=== PATIENT | male | born 1995 | race Caucasian/White ===

== ENCOUNTER 2017-02-26 03:40 | Emergency (ER) | payer BC ==
[2017-02-26 04:15] VITALS: TEMP 36.8; Ht 172.7 cm
[2017-02-26] MEDS ORDERED: METHYLPREDNISOLONE 125 MG VIAL IV STA (04:24)
[2017-02-26] MEDS ORDERED: DiphenhydrAMINE HCL 50 MG/ML VIAL IV STA (04:24)
[2017-02-26] MEDS ORDERED: CIPR1TAB11 PO (04:52)
[2017-02-26 05:02] LABS: ALT/SGPT 39 U/L (12-78); AST/SGOT 22 U/L (15-37); BLOOD UREA NITROGEN 13 mg/dl (7-18); BUN/CREATININE RATIO 12.2 (10-20); CALCIUM 9.6 mg/dl (8.5-10.1); CARBON DIOXIDE 29 mmol/L (21-32); CHLORIDE 108 mmol/L (98-107); GLUCOSE 116 mg/dl (70-99); POTASSIUM 3.8 mmol/L (3.5-5.1); SODIUM 142 mmol/L (136-145)
[2017-02-26 05:05] LABS: ALB/GLOB RATIO 1.2 (0.9-2); ALKALINE PHOSPHATASE 70 U/L (45-117)
[2017-02-26 06:28] LABS: BASO % 0.4 %; BASO ABS # 0.04 K/uL (0-0.2); COMPLETE YES; EOS % 1.8 %; HEMATOCRIT 46.7 % (42-52); IG% 0.2 %; LYMPH % 21.1 %; LYMPH ABS # 1.88 K/uL (1.2-3.4); MEAN CELL VOLUME 84.8 fL (80-100); MEAN CORPUSCULAR HEMOGLOBIN 30.3 pg (25-34); MEAN CORPUSCULAR HGB CONC 35.8 g/dl (32-36); MEAN PLATELET VOLUME 10.8 fL (7.4-10.4); MONO % 8.3 %; NEUT % 68.2 %; PLATELET COUNT 219 K/uL (130-400); RED BLOOD COUNT 5.51 M/uL (4.7-6.1); WHITE BLOOD COUNT 8.91 K/uL (4.8-10.8)
[2017-02-26 06:45] LABS: URINE APPEARANCE CLEAR (CLEAR); URINE BILIRUBIN NEG (NEG); URINE COLOR YELLOW; URINE NITRITE NEG (NEG); UROBILINOGEN NEG (NEG); ZZUR CULT IF INDIC CLEAN CATCH NO
[2017-02-26 06:50] LABS: MANUAL MICROSCOPIC REQUIRED? NO; REVIEW REQ? NO
[2017-02-26] MEDS ORDERED: PRED50TA PO (07:02)
[2017-02-26 07:03] VITALS: BP 127/79; PULSE 110; O2SAT 97
--- NOTE | 2017-02-26 07:54 | DIAGNOSTIC IMAGING REPORT ---
SCROTAL ULTRASOUND CLINICAL HISTORY: Bilateral testicular pain. COMPARISON STUDY: None. TECHNIQUE: Grayscale and color and duplex Doppler sonography of the scrotum was performed. FINDINGS: The right testis measures 4.1 x 2 x 2.6 cm and the left measures 4 x 2 x 2.6 cm. Color flow within each testis is symmetric. There is no testicular mass. There is no evidence for epididymitis. IMPRESSION: Normal scrotal ultrasound. No evidence of testicular torsion. Electronically signed by: Navdeep Adams M.D. 02/26/2017 7:53 AM Dictated Date/Time: 02/26/2017 7:52 AM
--- NOTE | 2017-02-27 00:13 | EMERGENCY ROOM VISIT NOTE ---
History First contact with patient: :17 Chief Complaint: OTHER COMPLAINT Stated Complaint: FACIAL NUMBNESS History of Present Illness The patient is a 21 year old male who presents to the Emergency Room with complaints of right-sided facial numbness, lip numbness, and rash on his chest that began about one hour ago. The patient states that he was diagnosed with a urinary tract infection after having testicular pain at an urgent care clinic this week. He took his first day of Cipro earlier today and had similar but minimal symptoms. He waited 12 hours to take his second dose, and now has a stronger return of the symptoms. The patient does have some abdominal cramping without diarrhea. He is not nauseated. No coughing. He rates his discomfort a 5/10. Review of Systems More than 10 systems were reviewed and otherwise negative with the exception of history of present illness. Past Medical/Surgical History No chronic medical disease Family History No pertinent family history Social History Smoking Status: Never Smoker Occupation Status: student Current/Historical Medications Scheduled Ciprofloxacin Tab (Cipro), Unknown Dose PO UD Prednisone (Prednisone), 50 MG PO DAILY Allergies Coded Allergies: Amoxicillin (Verified Allergy, Intermediate, HIVES, 02/26/17) Physical Exam Vital Signs Date Time Temp Pulse Resp B/P Pulse Ox O2 Delivery O2 Flow Rate FiO2 02/26/17 07:03 110 18 127/79 97 Room Air 02/26/17 06:15 106 19 136/78 97 Room Air 02/26/17 04:15 36.8 79 18 124/89 98 Room Air Pain Rating (0-10): 0 Physical Exam VITALS: Vitals are noted on the nurse's note and reviewed by myself. Vital signs stable. GENERAL: Well-developed, well-nourished, white male, who is in no acute distress and resting comfortably. Patient is cooperative with the examination. HEAD: Normocephalic atraumatic. EARS: External ear normal. External auditory canals clear, tympanic membranes pearly johnson without erythema or effusion bilaterally. EYES: Pupils equal round and reactive to light and accommodation. Conjunctivae without injection, sclerae without icterus. Extraocular movements intact. NOSE: Patent, turbinates without inflammation or discharge. MOUTH: Mucous membranes moist. Tonsils are not enlarged. Pharynx without erythema, blood, or exudate. Uvula midline. Airway patent. NECK: Supple without nuchal rigidity. No lymphadenopathy. No thyromegaly. Cervical spine is nontender. HEART: Regular rate and rhythm without murmurs gallops or rubs. LUNGS: Clear to auscultation bilaterally without wheezes, rales or rhonchi. No retractions or accessory muscle use. ABDOMEN: Positive normal bowel sounds x 4. Soft, nontender, without masses or organomegaly. No guarding or rebound tenderness. MUSCULOSKELETAL: No muscle atrophy, erythema, or edema noted. Full range of motion without joint tenderness in all extremities. Medical Decision & Procedures ER Provider Diagnostic Interpretation: SCROTAL ULTRASOUND CLINICAL HISTORY: Bilateral testicular pain. COMPARISON STUDY: None. TECHNIQUE: Grayscale and color and duplex Doppler sonography of the scrotum was performed. FINDINGS: The right testis measures 4.1 x 2 x 2.6 cm and the left measures 4 x 2 x 2.6 cm. Color flow within each testis is symmetric. There is no testicular mass. There is no evidence for epididymitis. IMPRESSION: Normal scrotal ultrasound. No evidence of testicular torsion. Laboratory Results 02/26/17 04:35 Red Blood Count 5.51, Mean Corpuscular Volume 84.8, Mean Corpuscular Hemoglobin 30.3, Mean Corpuscular Hemoglobin Concent 35.8, Mean Platelet Volume 10.8, Neutrophils (%) (Auto) 68.2, Lymphocytes (%) (Auto) 21.1, Monocytes (%) (Auto) 8.3, Eosinophils (%) (Auto) 1.8, Basophils (%) (Auto) 0.4, Neutrophils # (Auto) 6.07, Lymphocytes # (Auto) 1.88, Monocytes # (Auto) 0.74, Eosinophils # (Auto) 0.16, Basophils # (Auto) 0.04 02/26/17 04:35 Test 02/26/17 04:35 02/26/17 05:55 White Blood Count 8.91 K/uL (4.8-10.8) Red Blood Count 5.51 M/uL (4.7-6.1) Hemoglobin 16.7 g/dL (14.0-18.0) Hematocrit 46.7 % (42-52) Mean Corpuscular Volume 84.8 fL (80-100) Mean Corpuscular Hemoglobin 30.3 pg (25-34) Mean Corpuscular Hemoglobin Concent 35.8 g/dl (32-36) Platelet Count 219 K/uL (130-400) Mean Platelet Volume 10.8 fL (7.4-10.4) Neutrophils (%) (Auto) 68.2 % Lymphocytes (%) (Auto) 21.1 % Monocytes (%) (Auto) 8.3 % Eosinophils (%) (Auto) 1.8 % Basophils (%) (Auto) 0.4 % Neutrophils # (Auto) 6.07 K/uL (1.4-6.5) Lymphocytes # (Auto) 1.88 K/uL (1.2-3.4) Monocytes # (Auto) 0.74 K/uL (0.11-0.59) Eosinophils # (Auto) 0.16 K/uL (0-0.5) Basophils # (Auto) 0.04 K/uL (0-0.2) RDW Standard Deviation 37.0 fL (36.4-46.3) RDW Coefficient of Variation 12.1 % (11.5-14.5) Immature Granulocyte % (Auto) 0.2 % Immature Granulocyte # (Auto) 0.02 K/uL (0.00-0.02) Nucleated RBC Absolute Count (auto) 0.00 K/uL (0-0) Nucleated Red Blood Cells % 0.0 % Anion Gap 5.0 mmol/L (3-11) Estimated GFR () 111.4 Estimated GFR (Non- 96.1 BUN/Creatinine Ratio 12.2 (10-20) Calcium Level 9.6 mg/dl (8.5-10.1) Total Bilirubin 0.5 mg/dl (0.2-1) Aspartate Amino Transf (AST/SGOT) 22 U/L (15-37) Alanine Aminotransferase (ALT/SGPT) 39 U/L (12-78) Alkaline Phosphatase 70 U/L (45-117) Total Protein 7.9 gm/dl (6.4-8.2) Albumin 4.3 gm/dl (3.4-5.0) Globulin 3.6 gm/dl (2.5-4.0) Albumin/Globulin Ratio 1.2 (0.9-2) Urine Color YELLOW Urine Appearance CLEAR (CLEAR) Urine pH 6.0 (4.5-7.5) Urine Specific [place] 1.010 (1.000-1.030) Urine Protein NEG (NEG) Urine Glucose (UA) NEG (NEG) Urine Ketones NEG (NEG) Urine Occult Blood NEG (NEG) Urine Nitrite NEG (NEG) Urine Bilirubin NEG (NEG) Urine Urobilinogen NEG (NEG) Urine Leukocyte Esterase NEG (NEG) Medications Administered Medications (Trade) Dose Ordered Sig/Chad Route Start Time Stop Time Status Last Admin Dose Admin Methylprednisolone Sodium Succinate (Solu-Medrol IV) 125 mg NOW STAT IV 02/26/17 04:24 02/26/17 04:26 DC 02/26/17 04:39 125 MG Diphenhydramine HCl (Benadryl Inj) 25 mg NOW STAT IV 02/26/17 04:24 02/26/17 04:26 DC 02/26/17 04:39 25 MG ED Course Physical exam and history were performed. Nursing notes and EMR were reviewed. Patient appears to have symptoms of an allergic reaction after taking Cipro this evening. The patient does not appear in anaphylaxis. He is on the antibiotic after having testicular pain. He did have his urine testing results with him from urgent care, and he did have nitrates and esterase. He does have some mild continued testicle pain. IV access was established and labs were obtained. The patient was hydrated and medicated as above. Ultrasound was performed. The patient does not have a significantly elevated white blood cell count, gross anemia, bandemia, or significant electrolyte imbalance. His urine here in the department did not show significant findings. His ultrasound is as above and is essentially normal. The patient overall had significant improvement of his symptoms after sliding Medrol and Benadryl. He almost assuredly is allergic to Cipro and I requested that he discontinue the medication. The patient was being treated for UTI, but this is not evident on his exam today. He does not have evidence of epididymitis or other findings on ultrasound. The patient will be given a continuation prescription for steroids. He may continue Benadryl. I recommended that he follow with his primary care physician in next 1-2 days. He was otherwise invited back to the ER with any new, worsening, or concerning symptoms. The chart was completed utilizing [employer] Voice Recognition Software. Grammatical errors, random word insertions, pronoun errors, and incomplete sentences are an occasional consequence of this system due to software limitations, ambient noise, and hardware issues. Any formal questions or concerns about the content, text, or information contained within the body of this dictation should be directly addressed to the provider for clarification. . Medical Decision Differential diagnosis: Etiologies such as allergic reaction, anaphylaxis, urticaria, Monge-Donnell syndrome, toxic epidermal necrolysis, erythema multiforme, cellulitis, as well as others were entertained. Impression Primary Impression: Allergic reaction caused by a drug Departure Information Dispostion Home / Self-Care Condition GOOD Prescriptions Prednisone (Prednisone) 50 Mg Tab 50 MG PO DAILY for 4 Days, #4 TAB Prov: Herbert Myles PA-C 02/26/17 Forms HOME CARE DOCUMENTATION FORM, IMPORTANT VISIT INFORMATION Patient Instructions My [facility] Additional Instructions You were seen and evaluated today on an emergency basis only. This is not a substitute for, or an effort to provide, complete comprehensive medical care. It is not possible to recognize and treat all injuries or illnesses in a single emergency department visit. For this reason it is recommended that you followup with your primary care physician in the next 1-2 days for recheck of your condition. Take prednisone 50 mg daily for the next 4 days. You may use [id number] Benadryl 25-50 mg every 6 hours for additional relief of symptoms. Do not take Cipro or similar medications in the future. You are welcome to return to the emergency department anytime with new, worsening, or concerning symptoms.
== END 2017-02-26 07:08 | disposition home or self-care (01) ==
LOC: C.EDA 03:40
DX: R20.0 Anesthesia of skin (principal); R21 Rash and other nonspecific skin eruption; R10.9 Unspecified abdominal pain; T36.8X5A Adverse effect of other systemic antibiotics, initial encounter

== ENCOUNTER 2017-07-27 15:25 | Emergency (ER) | payer BC, OTHER ==
[~2017-07-27] VITALS: Ht 157.5 cm; Wt 69.9 kg
[~2017-07-27 15:25] MED LIST: CIPR1TAB11 PO
[2017-07-27 15:31] VITALS: BP 141/98; PULSE 92; TEMP 37.1; O2SAT 99; Ht 157.5 cm; Wt 69.9 kg
[2017-07-27] MEDS ORDERED: AZIT500T26 PO (16:06)
--- NOTE | 2017-07-27 16:19 | DIAGNOSTIC IMAGING REPORT ---
CHEST 2 VIEWS ROUTINE CLINICAL HISTORY: COUGH X 2 WEEKS COMPARISON STUDY: No previous studies for comparison. FINDINGS: The cardiac and mediastinal contours are normal. There is no evidence of focal pulmonary consolidation. There is no evidence of failure. No pleural effusions are visualized.[ IMPRESSION: No active disease in the chest. Electronically signed by: Galdino Montero M.D. 07/27/2017 4:18 PM Dictated Date/Time: 07/27/2017 4:18 PM
[2017-07-27] MEDS ORDERED: DOXY100C76 PO (17:08)
[2017-07-27] MEDS ORDERED: PRED50TA PO (17:08)
--- NOTE | 2017-07-27 17:10 | EMERGENCY ROOM VISIT NOTE ---
ED Visit Note First contact with patient: 15:40 CHIEF COMPLAINT: Possible allergic reaction to azithromycin HISTORY OF PRESENT ILLNESS: Patient is a 21-year-old white male who presents emergency department for evaluation of a possible allergic reaction to azithromycin. Patient reports that he has had a cough for 2 weeks, it became productive in the last 2 days. He was seen at [facility], examined, and diagnosed with a "lower respiratory infection." He was placed on a Z-Germain. He took his first dose of azithromycin 500 mg at 1320. Within 20 minutes he reports he lost hearing in his left ear, subsequently began to feel nauseous, stomach cramping and dry heaves. He also reports feeling a little bit dizzy. He now reports that his hearing is muffled in the left ear. He has no symptoms in the right ear. He denies that he had any upper respiratory symptoms including sinus or nasal congestion, ear pain, or sore throat. He reports allergic reactions to amoxicillin which causes hives, and states that he had a reaction to ciprofloxacin when he was being treated for a urinary tract infection this spring. He reports that he "lost feeling in his right side." The patient denies any skin rashes. No difficulty breathing or swallowing. He has never taken azithromycin previously. REVIEW OF SYSTEMS: Review of systems as per HPI. All other systems reviewed were negative. 10 systems reviewed. PMH: Electronic medical records are reviewed and summarized as above/below. See Problem List. SOCIAL HISTORY: Patient is a college student from [place] who lives locally with roommates in an apartment. He does not smoke. He denies alcohol use. PHYSICAL EXAM: Vital Signs: Reviewed Nurse's notes. MENTAL STATUS: Alert and cooperative. Nontoxic appearing. HEAD: Atraumatic, without temporal or scalp tenderness. EYES: PERRL, EOMI, no discharge or injection. EARS: Tympanic membranes intact, not inflamed, have normal contour. External canals clear. NOSE: Nares patent, turbinates moist without rhinorrhea. MOUTH: Mucous membranes moist, no lesions, tongue and gums appear normal. THROAT: No pharyngeal injection, exudates, or tonsillar hypertrophy. Airway is patent. NECK: Supple, nontender, no lymphadenopathy. HEART: Regular rate and rhythm without murmurs, ectopy, gallops, or rubs. LUNGS: Clear to auscultation and breath sounds equal, no wheezes, rales, or rhonchi. SKIN: Normal. NEUROLOGICAL: Sensory and motor functions grossly intact. Normal gait. EMERGENCY DEPARTMENT COURSE: The patient was seen and evaluated as above. His old records were reviewed. Chest x-ray was obtained and was negative. Treatment options were discussed with the patient. Certainly he could be experiencing some GI upset related to the azithromycin, which would be more consistent with an adverse reaction as opposed to an allergic reaction. His ear exam is relatively benign. He may be experiencing some element of eustachian tube dysfunction, could have some inner ear pathology. His hearing is grossly intact. He was given prednisone 60 mg orally and an albuterol inhaler with a spacer and instructed on its use for treatment of his bronchitis. He will stop the azithromycin at this point. If his cough is not improving, he was given a prescription for doxycycline, which he has taken in the past and has not had any problems with. If his ear symptoms are not improving, he was given contact information for ENT for follow-up. Medication reconciliation: I attest that I have personally reviewed the patient' s current medication list. Blood pressure screening: Patient was found to have a slightly elevated blood pressure due to circumstances. I do not believe that the patient requires hypertension monitoring. CHEST 2 VIEWS ROUTINE CLINICAL HISTORY: COUGH X 2 WEEKS COMPARISON STUDY: No previous studies for comparison. FINDINGS: The cardiac and mediastinal contours are normal. There is no evidence of focal pulmonary consolidation. There is no evidence of failure. No pleural effusions are visualized. IMPRESSION: No active disease in the chest. Problem List Medical Problems: (1) Allergic reaction caused by a drug Status: Resolved Surgical Problems: (1) Status post orchiopexy Status: Resolved Current/Historical Medications Scheduled Azithromycin (Zithromax), 500 MG PO DAILY/UD Doxycycline Monohydrate (Monodox), 100 MG PO BID Prednisone (Prednisone), 50 MG PO DAILY Allergies Coded Allergies: Amoxicillin (Verified Allergy, Intermediate, HIVES, 07/27/17) Ciprofloxacin (Verified Allergy, Unknown, lost feeing in right side, ) Vital Signs Date Time Temp Pulse Resp B/P (MAP) Pulse Ox O2 Delivery O2 Flow Rate FiO2 07/27/17 15:31 37.1 92 20 141/98 99 Room Air Medications Administered Medications (Trade) Dose Ordered Sig/Chad Route Start Time Stop Time Status Last Admin Dose Admin Albuterol (Ventolin Hfa Inhaler) 2 puffs NOW ONCE INH 07/27/17 17:15 07/27/17 17:16 DC 07/27/17 17:19 2 PUFFS Prednisone (PredniSONE TAB) 60 mg NOW STAT PO 07/27/17 17:04 07/27/17 17:05 DC 07/27/17 17:19 60 MG Departure Information Impression Primary Impression: Acute bronchitis Prescriptions Doxycycline Monohydrate (Monodox) 100 Mg Cap 100 MG PO BID, #14 CAP Prov: Vy Chowdhury PA 07/27/17 Prednisone (Prednisone) 50 Mg Tab 50 MG PO DAILY for 4 Days, #4 TAB Prov: Vy Chowdhury PA 07/27/17 Referrals No Doctor, Assigned (PCP) Mike Peraza M.D. ENT Surgery with [facility] Patient Instructions My [facility] Additional Instructions Prednisone 50mg: Once daily until the prescription is finished. It is best to take this earlier in the day as some patients note occasional difficulty falling asleep when taken in the late evening. Albuterol Inhaler: Take 2 puffs every 4 hours while awake for the next 5-7 days , then as needed for cough. If your symptoms have not improved, may fill and take the prescription for Doxycycline 100mg: Take one pill twice daily for seven days for your infection. Take with food, but avoid dairy. Avoid prolonged sun exposure since this medication makes you temporarily more susceptible to sunburns. All antibiotics can cause diarrhea. If this occurs and you feel worse or it does not resolve in 1-2 days follow up with your doctor or return to the Emergency Department as this could be signs of serious underlying problems. Any medication can cause an allergic reaction, stop the pills immediately and return to the ER for rash, hives, breathing difficulties, or swelling. Ibuprofen(Motrin, Advil) may be used for fever or pain. Use 600mg every six hours as needed. Take with food. Avoid using more than 2400mg in a 24 hour period. Do not use 2400mg per day for more than three consecutive days without physician direction. Prolonged inappropriate use can lead to stomach upset or ulcers. This is available over the counter and typically comes in 200mg tablets. (AND/OR) Acetaminophen(Tylenol) may be used for fever or pain. Use 1000mg every eight hours as needed. Avoid using more than 3000mg in a 24 hour period. This is available over the counter. Rest and drink plenty of fluids. Avoid strenuous activity until your symptoms resolve and your breathing returns to normal. Continue current medications. Return to the ER for chest pain, difficulty breathing, persistent fevers, vomiting, worsening of your condition, or as needed. Follow-up with [facility] this week for recheck. Follow-up with ENT surgery if your ear symptoms have not improved.
[2017-07-27] MEDS ORDERED: ALBUTEROL HFA 8 GM INHALER INH ONE (17:15)
== END 2017-07-27 17:29 | disposition home or self-care (01) ==
LOC: C.EDB 15:27 → C.EDD 17:29
DX: J20.9 Acute bronchitis, unspecified (principal); Z87.440 Personal history of urinary (tract) infections; Z98.890 Other specified postprocedural states

== ENCOUNTER 2017-11-14 20:38 | Emergency (ER) | payer OTHER ==
[~2017-11-14] VITALS: Ht 160 cm; Wt 71.2 kg
[~2017-11-14 20:38] MED LIST changes: +AZIT500T26 PO; -CIPR1TAB11 PO; +DOXY100C76 PO
[2017-11-14 20:40] VITALS: Ht 160 cm; Wt 71.2 kg
[2017-11-14] MEDS ORDERED: KETOROLAC TROMETHAMINE 30 MG/ML VIAL IV STA (21:05)
[2017-11-14] MEDS ORDERED: OSEL75CA23 PO (21:05)
[2017-11-14] MEDS ORDERED: SODIUM CHLORIDE 0.9% 1000ML 1,000 ML IV STA (21:05)
--- NOTE | 2017-11-14 21:08 | EMERGENCY ROOM VISIT NOTE ---
History Report prepared by Scribe: Sandrine Walsh Under the Supervision of: Dr. Dwain Varghese D.O. First contact with patient: 21:02 Chief Complaint: FLU LIKE SX Stated Complaint: FLU,LOW BODY TEMP History of Present Illness The patient is a 21 year old male who presents to the Emergency Room with complaints of persistent flu like symptoms for the past few days. He reports he went to his doctor recently and was told he had the flu and started on Tamiflu. He has been checking his temperature regularly and believes it has been low. He called his parents this evening and they told him "he didn't make sense" and to go to the ED. The patient complains of a cough, congestion, fatigue and body aches. He notes he slept for over 16 hours yesterday. Source of History: patient Onset: past few days [employer] Position: other (global) Timing: other (persistent) Modifying Factors (Relieving): other (Tamiflu) Associated Symptoms: + cough, + fatigue Review of Systems See HPI for pertinent positives & negatives. A total of 10 systems reviewed and were otherwise negative. Past Medical & Surgical Medical Problems: (1) Allergic reaction caused by a drug (2) GERD (gastroesophageal reflux disease) Surgical Problems: (1) S/P orchiopexy (2) Status post orchiopexy Social History Smoking Status: Never Smoker Alcohol Use: occasionally Drug Use: none Marital Status: single Housing Status: lives with roommate Occupation Status: [employer] student Current/Historical Medications Scheduled Oseltamivir Phosphate (Tamiflu), 75 MG PO BID Allergies Coded Allergies: Amoxicillin (Verified Allergy, Intermediate, HIVES, 07/27/17) Azithromycin (Verified Allergy, Unknown, Effect on hearing, 11/14/17) Ciprofloxacin (Verified Allergy, Unknown, lost feeing in right side, ) Physical Exam Vital Signs Date Time Temp Pulse Resp B/P (MAP) Pulse Ox O2 Delivery O2 Flow Rate FiO2 11/14/17 23:05 36.8 75 18 119/71 98 Room Air 11/14/17 21:36 97 18 128/76 97 11/14/17 20:40 36.5 88 18 143/97 97 Room Air Physical Exam GENERAL: Patient is awake, alert, and in no acute distress. Patient is resting comfortably and showing no signs of anxiety EYES: The conjunctivae are clear. The pupils are round and reactive. EARS, NOSE, MOUTH AND THROAT: The nose is without any evidence of any deformity. Mucous membranes are moist, geographic tongue noted, posterior oropharynx is clear, tongue is midline NECK: The neck is nontender and supple. RESPIRATORY: Normal respiratory effort is noted there is no evidence of wheezing rhonchi or rales CARDIOVASCULAR: Regular rate and rhythm noted there no murmurs rubs or gallops normal S1 normal S2 GASTROINTESTINAL: The abdomen is soft. Bowel sounds are present in all quadrants. Abdomen is nontender MUSCULOSKELETAL/EXTREMITIES: There is no evidence of gross deformity full range of motion is noted in the hips and shoulders SKIN: There is no obvious evidence of any rash. There are no petechiae, pallor or cyanosis noted. NEUROLOGIC: Patient is awake alert and oriented x3 strength is symmetric patellar reflexes are 2+ bilaterally Medical Decision & Procedures ER Provider Diagnostic Interpretation: Radiology results as stated below per my review and radiologist interpretation: CHEST 2 VIEWS ROUTINE CLINICAL HISTORY: ABDOMINAL PAIN/GI pain. Nausea. COMPARISON STUDY: 07/27/2017 FINDINGS: Lungs are clear. Diaphragms are smooth. No evidence for cardiac enlargement. IMPRESSION: Negative study The above report was generated using voice recognition software. It may contain grammatical, syntax or spelling errors. Electronically signed by: Ivan Go M.D. 11/14/2017 10:20 PM HEAD WITHOUT CONTRAST (CT) CT DOSE: 537.48 mGy.cm HISTORY: Headache. Fever. LANZA nad fever TECHNIQUE: Multiaxial CT images of the head were performed without the use of intravenous contrast. A dose lowering technique was utilized adhering to the principles of ALARA. Comparison: None. Findings: The paranasal sinuses and mastoid air cells are clear. The calvarium and skull base are intact. The ventricles and sulci are within normal limits. There is no mass, hematoma, midline shift, or acute infarct. Impression: No acute intracranial abnormality. The above report was generated using voice recognition software. It may contain grammatical, syntax or spelling errors. Electronically signed by: Ivan Go M.D. 11/14/2017 10:00 PM Laboratory Results 11/14/17 21:18 Red Blood Count 5.47, Mean Corpuscular Volume 83.2, Mean Corpuscular Hemoglobin 29.8, Mean Corpuscular Hemoglobin Concent 35.8, Mean Platelet Volume 10.3, Neutrophils (%) (Auto) 46.9, Lymphocytes (%) (Auto) 36.8, Monocytes (%) (Auto) 10.0, Eosinophils (%) (Auto) 5.2, Basophils (%) (Auto) 0.9, Neutrophils # (Auto ) 4.30, Lymphocytes # (Auto) 3.38, Monocytes # (Auto) 0.92, Eosinophils # (Auto ) 0.48, Basophils # (Auto) 0.08 11/14/17 21:18 Test 11/14/17 21:18 11/14/17 22:20 White Blood Count 9.18 K/uL (4.8-10.8) Red Blood Count 5.47 M/uL (4.7-6.1) Hemoglobin 16.3 g/dL (14.0-18.0) Hematocrit 45.5 % (42-52) Mean Corpuscular Volume 83.2 fL (80-100) Mean Corpuscular Hemoglobin 29.8 pg (25-34) Mean Corpuscular Hemoglobin Concent 35.8 g/dl (32-36) Platelet Count 208 K/uL (130-400) Mean Platelet Volume 10.3 fL (7.4-10.4) Neutrophils (%) (Auto) 46.9 % Lymphocytes (%) (Auto) 36.8 % Monocytes (%) (Auto) 10.0 % Eosinophils (%) (Auto) 5.2 % Basophils (%) (Auto) 0.9 % Neutrophils # (Auto) 4.30 K/uL (1.4-6.5) Lymphocytes # (Auto) 3.38 K/uL (1.2-3.4) Monocytes # (Auto) 0.92 K/uL (0.11-0.59) Eosinophils # (Auto) 0.48 K/uL (0-0.5) Basophils # (Auto) 0.08 K/uL (0-0.2) RDW Standard Deviation 37.9 fL (36.4-46.3) RDW Coefficient of Variation 12.7 % (11.5-14.5) Immature Granulocyte % (Auto) 0.2 % Immature Granulocyte # (Auto) 0.02 K/uL (0.00-0.02) Erythrocyte Sedimentation Rate 9 mm/hr (0-14) Anion Gap 6.0 mmol/L (3-11) Est Creatinine Clear Calc Drug Dose 103.3 ml/min Estimated GFR () 123.5 Estimated GFR (Non- 106.6 BUN/Creatinine Ratio 13.1 (10-20) Calcium Level 8.7 mg/dl (8.5-10.1) Total Bilirubin 0.5 mg/dl (0.2-1) Direct Bilirubin 0.1 mg/dl (0-0.2) Aspartate Amino Transf (AST/SGOT) 20 U/L (15-37) Alanine Aminotransferase (ALT/SGPT) 30 U/L (12-78) Alkaline Phosphatase 71 U/L (45-117) C-Reactive Protein 0.65 mg/dl (0-0.29) Total Protein 7.6 gm/dl (6.4-8.2) Albumin 4.0 gm/dl (3.4-5.0) Lipase 106 U/L (73-393) Urine Color YELLOW Urine Appearance CLEAR (CLEAR) Urine pH 6.5 (4.5-7.5) Urine Specific Colony 1.007 (1.000-1.030) Urine Protein NEG (NEG) Urine Glucose (UA) NEG (NEG) Urine Ketones NEG (NEG) Urine Occult Blood NEG (NEG) Urine Nitrite NEG (NEG) Urine Bilirubin NEG (NEG) Urine Urobilinogen NEG (NEG) Urine Leukocyte Esterase NEG (NEG) Laboratory results per my review. Medications Administered Medications (Trade) Dose Ordered Sig/Chad Route Start Time Stop Time Status Last Admin Dose Admin Ketorolac Tromethamine (Toradol Inj) 30 mg NOW STAT IV 11/14/17 21:05 11/14/17 21:06 DC 11/14/17 21:19 30 MG Sodium Chloride 1,000 ml @ 999 mls/hr Q1H1M STAT IV 11/14/17 21:05 11/14/17 22:05 DC 11/14/17 21:19 999 MLS/HR ED Course 2102: The patient was evaluated in room B5. A complete history and physical examination were performed. 2104: NSS 1000 ml @ 999 mls/hr IV, Toradol 30 mg IV. 2250: I reevaluated the patient. He is feeling well and resting. I discussed his results and discharge instructions and he verbalized complete understanding and agreement. Medical Decision Prior records/ancillary studies reviewed. Triage Nursing notes reviewed. The patient's history was concerning for fever. Differential diagnosis: Etiologies such as viral syndrome, otitis, pharyngitis, pneumonia, influenza, meningitis, urinary tract infection, sepsis, bacteremia, as well as others were entertained. The patient is a 21-year-old male who presented to the emergency department for an evaluation of the flu. The patient states that he's been noticing his temperature has been running low. He was very concerned about this. He was seen recently diagnosed with the flu. He is currently taking medication for this. He states it when his parents called today they thought he was confused over the phone so he was told to go to the emergency department. At this time the patient does not have meningismus or any significant alteration in his mental status. I discussed the patient's laboratory and radiographic studies with her. He was encouraged to continue all medications as prescribed and continue to monitor his temperature. He was also encouraged to follow-up with his primary care physician for further evaluation but return to the emergency department immediately if symptoms change worsen or the need arises. Medication Reconcilliation Current Medication List: was personally reviewed by me Blood Pressure Screening Patient's blood pressure: Normal blood pressure Blood pressure disposition: Did not require urgent referral Impression Primary Impression: Flu Scribe Attestation The scribe's documentation has been prepared under my direction and personally reviewed by me in its entirety. I confirm that the note above accurately reflects all work, treatment, procedures, and medical decision making performed by me. Departure Information Dispostion Home / Self-Care Referrals No Doctor, Assigned (PCP) Patient Instructions ED Flu, My [facility] Additional Instructions Continue using Motrin and Tylenol as directed for fever and body aches. Follow- up with [facility] for reevaluation. Return to the emergency department immediately if symptoms change worsen or need arises.
[2017-11-14 21:34] LABS: BASO % 0.9 %; BASO ABS # 0.08 K/uL (0-0.2); EOS % 5.2 %; EOS ABS # 0.48 K/uL (0-0.5); HEMATOCRIT 45.5 % (42-52); HEMOGLOBIN 16.3 g/dL (14.0-18.0); IG# 0.02 K/uL (0.00-0.02); LYMPH % 36.8 %; LYMPH ABS # 3.38 K/uL (1.2-3.4); MEAN CELL VOLUME 83.2 fL (80-100); MEAN CORPUSCULAR HEMOGLOBIN 29.8 pg (25-34); MEAN CORPUSCULAR HGB CONC 35.8 g/dl (32-36); MEAN PLATELET VOLUME 10.3 fL (7.4-10.4); MONO ABS # 0.92 K/uL (0.11-0.59); NEUT % 46.9 %; PLATELET COUNT 208 K/uL (130-400); RED CELL DISTRIBUTION WIDTH CV 12.7 % (11.5-14.5); RED CELL DISTRIBUTION WIDTH SD 37.9 fL (36.4-46.3); WHITE BLOOD COUNT 9.18 K/uL (4.8-10.8)
[2017-11-14 21:52] LABS: CALCIUM 8.7 mg/dl (8.5-10.1); CREATININE 1.01 mg/dl (0.60-1.40); POTASSIUM 3.8 mmol/L (3.5-5.1)
[2017-11-14 21:55] LABS: TOTAL PROTEIN 7.6 gm/dl (6.4-8.2)
--- NOTE | 2017-11-14 22:01 | DIAGNOSTIC IMAGING REPORT ---
HEAD WITHOUT CONTRAST (CT) CT DOSE: 537.48 mGy.cm HISTORY: Headache. Fever. LANZA nad fever TECHNIQUE: Multiaxial CT images of the head were performed without the use of intravenous contrast. A dose lowering technique was utilized adhering to the principles of ALARA. Comparison: None. Findings: The paranasal sinuses and mastoid air cells are clear. The calvarium and skull base are intact. The ventricles and sulci are within normal limits. There is no mass, hematoma, midline shift, or acute infarct. Impression: No acute intracranial abnormality. The above report was generated using voice recognition software. It may contain grammatical, syntax or spelling errors. Electronically signed by: Ivan Go M.D. 11/14/2017 10:00 PM Dictated Date/Time: 11/14/2017 9:59 PM
--- NOTE | 2017-11-14 22:21 | DIAGNOSTIC IMAGING REPORT ---
CHEST 2 VIEWS ROUTINE CLINICAL HISTORY: ABDOMINAL PAIN/GI pain. Nausea. COMPARISON STUDY: 07/27/2017 FINDINGS: Lungs are clear. Diaphragms are smooth. No evidence for cardiac enlargement. IMPRESSION: Negative study The above report was generated using voice recognition software. It may contain grammatical, syntax or spelling errors. Electronically signed by: Ivan Go M.D. 11/14/2017 10:20 PM Dictated Date/Time: 11/14/2017 10:04 PM
[2017-11-14 23:05] VITALS: BP 119/71; PULSE 75; TEMP 36.8; O2SAT 98
== END 2017-11-14 23:07 | disposition home or self-care (01) ==
LOC: C.EDB 20:39
DX: J11.1 Influenza due to unidentified influenza virus with other respiratory manifestations (principal)

== ENCOUNTER 2017-12-04 01:59 | Emergency (ER) | payer OTHER ==
[~2017-12-04] VITALS: Ht 157.5 cm; Wt 71.8 kg
[~2017-12-04 01:59] MED LIST changes: -AZIT500T26 PO; -DOXY100C76 PO; +OSEL75CA23 PO
[2017-12-04 02:03] VITALS: Ht 157.5 cm; Wt 71.8 kg
[2017-12-04] MEDS ORDERED: KETOROLAC TROMETHAMINE 30 MG/ML VIAL IV STA (02:24)
[2017-12-04] MEDS ORDERED: ACETAMINOPHEN IV 1,000 MG in EMPTY BAG 0 ML IV ONE (02:30)
[2017-12-04] MEDS ORDERED: SODIUM CHLORIDE 0.9% 1000ML 1,000 ML, SODIUM CHLORIDE 0.9% 1000ML 1,000 ML IV ONE (02:30)
[2017-12-04] MEDS ORDERED: ACETAMINOPHEN 1000 MG/100 ML IV IV ONE (03:16)
[2017-12-04 03:25] LABS: BASO % 0.3 %; BASO ABS # 0.03 K/uL (0-0.2); EOS % 0.3 %; EOS ABS # 0.03 K/uL (0-0.5); HEMATOCRIT 43.4 % (42-52); HEMOGLOBIN 15.9 g/dL (14.0-18.0); IG# 0.03 K/uL (0.00-0.02); LYMPH % 8.4 %; LYMPH ABS # 0.85 K/uL (1.2-3.4); MEAN CELL VOLUME 83.5 fL (80-100); MEAN CORPUSCULAR HEMOGLOBIN 30.6 pg (25-34); MEAN CORPUSCULAR HGB CONC 36.6 g/dl (32-36); MEAN PLATELET VOLUME 10.2 fL (7.4-10.4); MONO % 9.2 %; MONO ABS # 0.93 K/uL (0.11-0.59); NEUT % 81.5 %; NEUT ABS # 8.24 K/uL (1.4-6.5); PLATELET COUNT 193 K/uL (130-400); RED CELL DISTRIBUTION WIDTH SD 38.8 fL (36.4-46.3); WHITE BLOOD COUNT 10.11 K/uL (4.8-10.8)
[2017-12-04 03:46] LABS: ALBUMIN 4.1 gm/dl (3.4-5.0); CALCIUM 9.5 mg/dl (8.5-10.1); CREATININE 1.26 mg/dl (0.60-1.40); POTASSIUM 3.4 mmol/L (3.5-5.1)
[2017-12-04 03:49] LABS: TOTAL PROTEIN 8.3 gm/dl (6.4-8.2)
[2017-12-04] MEDS ORDERED: SODIUM CHLORIDE 0.9% 1000ML 1,000 ML IV ONE (04:45)
[2017-12-04] MEDS ORDERED: OPTIRAY 320 IV PRN (05:00)
[2017-12-04 06:04] LABS: INFLUENZA B ANTIGEN Neg for Influ B (NEG)
[2017-12-04] MEDS ORDERED: OSELTAMIVIR PHOSPHATE 75 MG CAP PO STA (06:05)
[2017-12-04] MEDS ORDERED: ALBUTEROL HFA 8 GM INHALER INH ONE (06:15)
[2017-12-04 06:23] VITALS: BP 106/61; PULSE 85; TEMP 38; O2SAT 96
--- NOTE | 2017-12-04 07:46 | DIAGNOSTIC IMAGING REPORT ---
CT ANGIOGRAM OF THE CHEST CLINICAL HISTORY: Fever. Cough and dyspnea. COMPARISON STUDY: Chest radiograph dated 12/04/2017. TECHNIQUE: Following the IV administration of 93 cc of Optiray 320, CT angiogram of the chest was performed from the upper abdomen to the thoracic inlet utilizing the pulmonary embolus protocol. Images are reviewed in the axial, sagittal, and coronal planes. 3-D MIPS images are created and assessed. IV contrast was administered without complication. A dose lowering technique was utilized adhering to the principles of ALARA. The examination is degraded by motion artifact. CT DOSE: 298.78 mGy.cm FINDINGS: Thyroid: Imaged portions of the thyroid gland are normal in size and attenuation. Thoracic aorta: The thoracic aorta is normal in caliber and demonstrates standard 3-vessel arch anatomy. No dissection is seen. Pulmonary vasculature: The pulmonary trunk is normal in caliber. There are no filling defects identified in main, lobar, or segmental pulmonary branches to suggest pulmonary embolus. Heart: The heart is normal in size and configuration, and without pericardial effusion. Lungs and pleural spaces: Evaluation of the lung parenchyma is degraded by motion artifact. No airspace consolidation or pleural effusion is identified. The trachea and central airways are clear. Mild diffuse peribronchial thickening suggests reactive airway disease. Mediastinum: Minimal residual thymic tissue is seen in the anterior mediastinum. There is no mediastinal lymphadenopathy. Nubia: Clear. Axillae: There is no axillary lymphadenopathy. Upper abdomen: Hepatic steatosis is suspected. Partially visualized upper abdominal viscera is otherwise within normal limits. Skeletal structures: No lytic or blastic bony lesions are seen. IMPRESSION: 1. There is no evidence of pulmonary embolus in the main, lobar, or segmental pulmonary arteries. 2. There is no airspace consolidation or pleural effusion. Mild peribronchial thickening suggests reactive air disease. Clinical correlation will be required. 3. Suspect hepatic steatosis. Electronically signed by: Gustavo Anderson M.D. 12/04/2017 7:45 AM Dictated Date/Time: 12/04/2017 7:42 AM
--- NOTE | 2017-12-04 07:51 | DIAGNOSTIC IMAGING REPORT ---
CHEST 2 VIEWS ROUTINE HISTORY: Fever. Cough. COMPARISON: Chest 11/14/2017. FINDINGS: The lungs are clear. Cardiac silhouette is normal in size. No pleural effusions. No pneumothorax. IMPRESSION: No acute process. Electronically signed by: Jordan Vu M.D. 12/04/2017 7:49 AM Dictated Date/Time: 12/04/2017 7:47 AM
--- NOTE | 2017-12-04 22:36 | EMERGENCY ROOM VISIT NOTE ---
History First contact with patient: 02:12 Chief Complaint: FLU LIKE SX Stated Complaint: FEVER, COUGH, LANZA History of Present Illness The patient is a 21 year old male who presents to the Emergency Room with complaints of fever, cough, and flulike symptoms worsening over the past day. The patient states that he has been sick for the past 2 or 3 weeks, and was given Tamiflu for possible flu initially. The patient took the medication, and it caused him vomiting, causing him to stop taking it. After few days did improve, but he states that his symptoms returned yesterday. He took his temperature tonight and he states that it was 105.7. There is no abdominal pain, neck pain, or extremity pain. He does have a severe persistent cough that does cause some posttussive chest discomfort. He rates his overall discomfort a 9/10. He considers himself otherwise usually healthy. Review of Systems More than 10 systems were reviewed and otherwise negative with the exception of history of present illness. Past Medical/Surgical History Medical Problems: (1) Allergic reaction caused by a drug (2) GERD (gastroesophageal reflux disease) Surgical Problems: (1) S/P orchiopexy (2) Status post orchiopexy Family History No pertinent family history Social History Smoking Status: Never Smoker Alcohol Use: occasionally Drug Use: none Marital Status: single Housing Status: lives with roommate Occupation Status: [employer] Current/Historical Medications No Active Prescriptions or Reported Meds Physical Exam Vital Signs Date Time Temp Pulse Resp B/P (MAP) Pulse Ox O2 Delivery O2 Flow Rate FiO2 12/04/17 06:23 38.0 85 20 106/61 96 12/04/17 06:09 83 12/04/17 05:01 106/55 12/04/17 04:52 88 20 106/55 96 Room Air 12/04/17 04:49 92 21 96 12/04/17 04:44 93 18 96 12/04/17 04:30 106/55 12/04/17 04:29 100 23 96 12/04/17 04:28 38.0 12/04/17 04:21 88/55 12/04/17 04:14 96 23 95 12/04/17 04:00 86/39 12/04/17 03:59 98 20 95 12/04/17 03:44 116 30 96 12/04/17 03:31 97/49 12/04/17 03:29 104 27 99 12/04/17 03:14 104 25 98 12/04/17 02:59 140 34 96 12/04/17 02:30 129/73 12/04/17 02:29 126 16 96 12/04/17 02:20 131 12/04/17 02:13 119/70 12/04/17 02:03 39.4 143 18 122/74 95 Room Air Physical Exam VITALS: Vitals are noted on the nurse's note and reviewed by myself. Vital signs with noted fever and tachycardia GENERAL: Ill-appearing white male who is with persistent dry cough throughout the examination EARS: External ear normal. External auditory canals clear, tympanic membranes pearly johnson without erythema or effusion bilaterally. EYES: Pupils equal round and reactive to light and accommodation. Conjunctivae without injection, sclerae without icterus. Extraocular movements intact. NOSE: Patent, turbinates without inflammation or discharge. MOUTH: Mucous membranes moist. Tonsils are not enlarged. Pharynx without erythema, blood, or exudate. Uvula midline. Airway patent. NECK: Supple without nuchal rigidity. No lymphadenopathy. No thyromegaly. Cervical spine is nontender. No meningismus HEART: Regular rate and rhythm without murmurs gallops or rubs. LUNGS: Clear to auscultation bilaterally without wheezes, rales or rhonchi. No retractions or accessory muscle use. ABDOMEN: Positive normal bowel sounds x 4. Soft, nontender, without masses or organomegaly. No guarding or rebound tenderness. MUSCULOSKELETAL: No muscle atrophy, erythema, or edema noted. Full range of motion without joint tenderness in all extremities. Medical Decision & Procedures ER Provider Diagnostic Interpretation: CHEST 2 VIEWS ROUTINE HISTORY: Fever. Cough. COMPARISON: Chest 11/14/2017. FINDINGS: The lungs are clear. Cardiac silhouette is normal in size. No pleural effusions. No pneumothorax. IMPRESSION: No acute process. CT ANGIOGRAM OF THE CHEST CLINICAL HISTORY: Fever. Cough and dyspnea. COMPARISON STUDY: Chest radiograph dated 12/04/2017. TECHNIQUE: Following the IV administration of 93 cc of Optiray 320, CT angiogram of the chest was performed from the upper abdomen to the thoracic inlet utilizing the pulmonary embolus protocol. Images are reviewed in the axial, sagittal, and coronal planes. 3-D MIPS images are created and assessed. IV contrast was administered without complication. A dose lowering technique was utilized adhering to the principles of ALARA. The examination is degraded by motion artifact. CT DOSE: 298.78 mGy.cm FINDINGS: Thyroid: Imaged portions of the thyroid gland are normal in size and attenuation. Thoracic aorta: The thoracic aorta is normal in caliber and demonstrates standard 3-vessel arch anatomy. No dissection is seen. Pulmonary vasculature: The pulmonary trunk is normal in caliber. There are no filling defects identified in main, lobar, or segmental pulmonary branches to suggest pulmonary embolus. Heart: The heart is normal in size and configuration, and without pericardial effusion. Lungs and pleural spaces: Evaluation of the lung parenchyma is degraded by motion artifact. No airspace consolidation or pleural effusion is identified. The trachea and central airways are clear. Mild diffuse peribronchial thickening suggests reactive airway disease. Mediastinum: Minimal residual thymic tissue is seen in the anterior mediastinum. There is no mediastinal lymphadenopathy. Nubia: Clear. Axillae: There is no axillary lymphadenopathy. Upper abdomen: Hepatic steatosis is suspected. Partially visualized upper abdominal viscera is otherwise within normal limits. Skeletal structures: No lytic or blastic bony lesions are seen. IMPRESSION: 1. There is no evidence of pulmonary embolus in the main, lobar, or segmental pulmonary arteries. 2. There is no airspace consolidation or pleural effusion. Mild peribronchial thickening suggests reactive air disease. Clinical correlation will be required. 3. Suspect hepatic steatosis. Laboratory Results 12/04/17 03:10 Red Blood Count 5.20, Mean Corpuscular Volume 83.5, Mean Corpuscular Hemoglobin 30.6, Mean Corpuscular Hemoglobin Concent 36.6, Mean Platelet Volume 10.2, Neutrophils (%) (Auto) 81.5, Lymphocytes (%) (Auto) 8.4, Monocytes (%) (Auto) 9.2, Eosinophils (%) (Auto) 0.3, Basophils (%) (Auto) 0.3, Neutrophils # (Auto) 8.24, Lymphocytes # (Auto) 0.85, Monocytes # (Auto) 0.93, Eosinophils # (Auto) 0.03, Basophils # (Auto) 0.03 12/04/17 03:10 Test 12/04/17 03:08 12/04/17 03:10 12/04/17 04:45 Bedside Troponin I < 0.030 ng/ml (0-0.045) White Blood Count 10.11 K/uL (4.8-10.8) Red Blood Count 5.20 M/uL (4.7-6.1) Hemoglobin 15.9 g/dL (14.0-18.0) Hematocrit 43.4 % (42-52) Mean Corpuscular Volume 83.5 fL (80-100) Mean Corpuscular Hemoglobin 30.6 pg (25-34) Mean Corpuscular Hemoglobin Concent 36.6 g/dl (32-36) Platelet Count 193 K/uL (130-400) Mean Platelet Volume 10.2 fL (7.4-10.4) Neutrophils (%) (Auto) 81.5 % Lymphocytes (%) (Auto) 8.4 % Monocytes (%) (Auto) 9.2 % Eosinophils (%) (Auto) 0.3 % Basophils (%) (Auto) 0.3 % Neutrophils # (Auto) 8.24 K/uL (1.4-6.5) Lymphocytes # (Auto) 0.85 K/uL (1.2-3.4) Monocytes # (Auto) 0.93 K/uL (0.11-0.59) Eosinophils # (Auto) 0.03 K/uL (0-0.5) Basophils # (Auto) 0.03 K/uL (0-0.2) RDW Standard Deviation 38.8 fL (36.4-46.3) RDW Coefficient of Variation 13.0 % (11.5-14.5) Immature Granulocyte % (Auto) 0.3 % Immature Granulocyte # (Auto) 0.03 K/uL (0.00-0.02) Anion Gap 8.0 mmol/L (3-11) Est Creatinine Clear Calc Drug Dose 81.3 ml/min Estimated GFR () 94.5 Estimated GFR (Non- 81.6 BUN/Creatinine Ratio 12.1 (10-20) Bedside Lactic Acid Venous 1.40 mmol/L (0.90-1.70) Calcium Level 9.5 mg/dl (8.5-10.1) Total Bilirubin 0.7 mg/dl (0.2-1) Aspartate Amino Transf (AST/SGOT) 28 U/L (15-37) Alanine Aminotransferase (ALT/SGPT) 39 U/L (12-78) Alkaline Phosphatase 71 U/L (45-117) Total Protein 8.3 gm/dl (6.4-8.2) Albumin 4.1 gm/dl (3.4-5.0) Globulin 4.2 gm/dl (2.5-4.0) Albumin/Globulin Ratio 1.0 (0.9-2) Influenza Type A Antigen POS for Influ A (NEG) Influenza Type B Antigen Neg for Influ B (NEG) Medications Administered Medications (Trade) Dose Ordered Sig/Chad Route Start Time Stop Time Status Last Admin Dose Admin Ketorolac Tromethamine (Toradol Inj) 30 mg NOW STAT IV 12/04/17 02:24 12/04/17 02:27 DC 12/04/17 03:20 30 MG Sodium Chloride/ Sodium Chloride 2,000 ml @ 999 mls/hr Q2H1M ONCE IV 12/04/17 02:30 12/04/17 04:30 DC 12/04/17 03:19 999 MLS/HR Acetaminophen 1000 mg/Empty Bag 100 ml @ 400 mls/hr NOW ONCE IV 12/04/17 02:30 12/04/17 02:44 DC 12/04/17 03:22 400 MLS/HR Sodium Chloride 1,000 ml @ 999 mls/hr Q1H1M ONCE IV 12/04/17 04:45 12/04/17 05:45 DC 12/04/17 04:50 999 MLS/HR Albuterol (Ventolin Hfa Inhaler) 2 puffs NOW ONCE INH 12/04/17 06:15 12/04/17 06:16 DC 12/04/17 06:16 2 PUFFS ED Course Physical exam and history were performed. Nursing notes, EMR, and Medication List were personally reviewed. Patient appears to have flulike symptoms for the past 2 or 3 weeks. He initially took Tamiflu but was unable to tolerate it due to GI upset. The patient appears ill on examination. He is coughing throughout the exam and is tachycardic.There is some posttussive chest discomfort, and EKG was performed. EKG was poor baseline, but is normal sinus rhythm at 88 bpm per my dictation interpretation. No previous are available for review. IV access was established and labs were obtained. The patient was medicated as above. Chest x-ray was performed. The patient's blood work is as above and was reviewed. He does not have a significant elevated white blood cell count or gross anemia, bandemia, or significant electric imbalance. Chest x-ray does not show an obvious findings such as pneumonia. The patient was reevaluated multiple times with course of his stay. He continues to be tachycardic despite antipyretics and fluids. He appears much more comfortable on examination, but considering the length of symptoms I did perform a CT scan of the chest. CT scan is without signs of pulmonary embolism or other significant findings. Overall the patient appears well for discharge home. His influenza swab did come back positive for influenza A, and this is likely the cause of his symptoms. He will be given an albuterol inhaler to help with the cough. He is to continue [id number] Advil and Tylenol. He was otherwise invited back to the ER with any new, worsening, or concerning symptoms. The chart was completed utilizing [employer] Speech Voice Recognition Software. Grammatical errors, random word insertions, pronoun errors, and incomplete sentences are an occasional consequence of this system due to software limitations, ambient noise, and hardware issues. Any formal questions or concerns about the content, text, or information contained within the body of this dictation should be directly addressed to the provider for clarification. . Medical Decision Differential diagnosis: Etiologies such as viral syndrome, otitis, pharyngitis, pneumonia, influenza, meningitis, urinary tract infection, sepsis, bacteremia, as well as others were entertained. Impression Primary Impression: Influenza A Departure Information Dispostion Home / Self-Care Condition GOOD Prescriptions No Active Prescriptions or Reported Meds Forms HOME CARE DOCUMENTATION FORM, IMPORTANT VISIT INFORMATION Patient Instructions My [facility] Additional Instructions You were seen and evaluated today on an emergency basis only. This is not a substitute for, or an effort to provide, complete comprehensive medical care. It is not possible to recognize and treat all injuries or illnesses in a single emergency department visit. For this reason it is recommended that you followup with your primary care physician next week for recheck of your condition. For baseline pain relief you may alternate ibuprofen and acetaminophen every 4 hours for pain control. Take 600 mg ibuprofen (Advil) and then 4 hours later take 1000 mg acetaminophen (Tylenol). Do not take more than 3000 mg acetaminophen in a single day. Drink plenty of fluids and remain well hydrated Use your Albuterol inhaler, 2 puffs every 4-6 hours as needed for coughing or breathing difficulty You are welcome to return to the emergency department anytime with new, worsening, or concerning symptoms.
== END 2017-12-04 06:24 | disposition home or self-care (01) ==
LOC: C.EDB 02:00
DX: J11.1 Influenza due to unidentified influenza virus with other respiratory manifestations (principal); K21.9 Gastro-esophageal reflux disease without esophagitis

== ENCOUNTER → 2017-12-21 | Outpatient (CLI) | payer OTHER ==
--- NOTE | 2017-12-21 14:09 | DIAGNOSTIC IMAGING REPORT ---
ULTRASOUND OF THE THYROID GLAND CLINICAL HISTORY: Thyromegaly. COMPARISON STUDY: Chest CT dated 12/04/2017. TECHNIQUE: Real-time, grayscale, and color flow sonography of the thyroid gland is performed utilizing a high-frequency linear transducer. Images are reviewed in the transverse and longitudinal planes. FINDINGS: Right lobe: The right lobe of the thyroid gland is normal in size and homogeneous in echotexture, measuring 4.1 x 1.4 x 1.4 cm. Left lobe: The left lobe of the thyroid gland is normal in size and homogeneous in echotexture, measuring 4.0 x 1.2 x 1.4 cm. Isthmus: The thyroid isthmus is normal in appearance and measures 0.4 cm in AP diameter. IMPRESSION: Unremarkable sonographic assessment of the thyroid gland. Electronically signed by: Gustavo Anderson M.D. 12/21/2017 2:08 PM Dictated Date/Time: 12/21/2017 2:01 PM
== END | disposition home or self-care (01) ==
LOC: C.ULTR 13:34
PROVIDERS: ATTEND Family Medicine
DX: R93.8 Abnormal findings on diagnostic imaging of other specified body structures (principal); Z88.1 Allergy status to other antibiotic agents; Z88.0 Allergy status to penicillin; Z91.09 Other allergy status, other than to drugs and biological substances